=== PATIENT | female | born 1980 | race Caucasian/White ===

== ENCOUNTER 2018-12-14 19:41 | Emergency (ER) | payer MEDICAID ==
[~2018-12-14] VITALS: Ht 165.1 cm; Wt 81.6 kg
[2018-12-14 21:30] VITALS: BP 128/62
[2018-12-14] MEDS ORDERED: IBUPROFEN 600MG TABLET PO ONE (23:00)
== END 2018-12-14 23:42 | disposition home or self-care (01) ==
LOC: ER 20:07
DX: S16.1XXA Strain of muscle, fascia and tendon at neck level, initial encounter (principal); V43.92XA Unspecified car occupant injured in collision with other type car in traffic accident, initial encounter; Y93.9 Activity, unspecified; Y92.410 Unspecified street and highway as the place of occurrence of the external cause
CPT/HCPCS: 81025; 99283